=== PATIENT | male | born 1950 | race Caucasian/White ===

== ENCOUNTER 2016-09-22 15:47 | Emergency (ER) | payer BC ==
[2016-09-22 15:57] VITALS: BP 151/98
[2016-09-22] MEDS ORDERED: Sodium Chloride 0.9% 10 ML Syringe FLUSH PRN (16:10)
--- NOTE | 2016-09-22 16:16 | EDM.PDOC ---
ED HISTORY OF PRESENT ILLNESS - General Chief Complaint: Chest Pain Stated Complaint: CHEST PAIN, COUGH WHILE LAYING DOWN Time Seen by Provider: 09/22/16 15:57 Source of Information: Reports: Patient History Limitations: Reports: No limitations - History of Present Illness INITIAL COMMENTS - FREE TEXT/NARRATIVE: Patient is a 66-year-old male who has been experiencing intermittent burning sensation to the substernal aspect of his chest rated a 9/10 with exertion in cold temperatures. States the discomfort comes on quickly and is only relieved with resting in an warm environment. States this has been going on for the past 10 days with returning to [place] to work. Patient resides in [place]. States last episode was this morning when the pain came on abruptly and severe while walking outside. Patient states he got mildly short of breath and dizzy/lightheaded and almost passed out. He was evaluated in at the [facility] and had blood work, CXR, and EKG obtained. 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 Blood work was essentially normal. Blood glucose was 354. He refused to be transported via ambulance to the E.D. for evaluation. Patient received 324mg ASA at the clinic. CXR obtained revealed no active disease. Patient arrived at the E.D. pain free. Past medical history acid reflux and takes a acid spare hand carding medication of unknown name. Surgical history: Left biceps repair. Allergies: Penicillin Family history: Dad heart disease, brother heart disease with bypass x5. Denies smoking, alcohol, or recreational drug use. Timing/Duration: Reports: Resolved prior to arrival Location, General: Reports: chest Quality: Reports: Burning Improves with: Reports: Rest Worsens with: Reports: Other (Exertion in cold temperatures) Associated Symptoms (General): Reports: chest pain. 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 [Unable to Verify Home Med List] 09/22/16 [History] Past Medical History - Past Health History Medical/Surgical History: Denies Medical/Surgical History Social & Family History - Tobacco Use Smoking Status *Q: Never Smoker - Caffeine Use Caffeine Use: Reports: Coffee - Recreational Drug Use Recreational Drug Use: No ED ROS GENERAL - Review of Systems Review Of Systems: See Below Constitutional: Denies: fever, chills, diaphoresis Respiratory: Denies: Shortness of Breath, Cough, Sputum Cardiovascular: Reports: Chest pain, Dyspnea on exertion, Lightheadedness. Denies: Edema, Orthopnea, Palpitations, PND, Syncope GI/Abdominal: Denies: Abdominal pain, Constipation, Diarrhea, Nausea, Vomiting Musculoskeletal: Denies: neck pain, shoulder pain, arm pain, back pain Neurological: Reports: Dizziness ED EXAM, GENERAL - Physical Exam Exam: See Below Exam Limited By: No limitations General Appearance: alert, WD/WN, no apparent distress Ears: hearing grossly normal Throat/Mouth: Normal voice, No airway compromise Neck: normal inspection, supple Respiratory/Chest: no respiratory distress, lungs clear, normal breath sounds, no accessory muscle use, chest non-tender Cardiovascular: normal peripheral pulses, regular rate, rhythm, no JVD, no murmur Peripheral Pulses: 2+: radial (L), radial (R) GI/Abdominal: normal bowel sounds, soft, non tender, no organomegaly, no distention Back Exam: normal inspection Extremities: normal inspection, normal range of motion, non-tender, no pedal edema Neurological: alert, oriented, CN II-XII intact, normal cognition, no motor/ sensory deficits Psychiatric: normal affect, normal mood Skin Exam: Warm, Dry, Intact, Normal color Course - Vital Signs Last Recorded V/S: Last Vital Signs Temp 97.8 F 09/22/16 15:55 Pulse 105 H 09/22/16 15:55 Resp 18 09/22/16 15:55 BP 151/98 H 09/22/16 15:55 Pulse Ox 96 09/22/16 15:55 - Orders/Labs/Meds Orders: Active Orders 24 hr Category Date Time Status EKG 12 Lead [EKG Documentation Completion] [RC] STAT Care 09/22/16 18:06 Active EKG Documentation Completion [RC] STAT Care 09/22/16 16:10 Active Peripheral IV Care [RC] . DIRECTED Care 09/22/16 16:10 Active Heparin Sodium/D5W [Heparin 25,000 Units in D5W 500 ML] Med 09/22/16 17:00 Active 25,000 units in 500 ml IV TITRATE Sodium Chloride 0.9% [Saline Flush] Med 09/22/16 16:10 Active 10 ml FLUSH ASDIRECTED PRN Peripheral IV Insertion Adult [OM.PC] Stat Oth 09/22/16 16:10 Ordered Medication Orders Heparin Sodium/Dextrose (Heparin 25,000 Units In D5w 500 Ml) 25,000 units in 500 mls @ 22.861 mls/hr IV TITRATE PATRICIA; 12 UNITS/KG/HR PRN Reason: Protocol Sodium Chloride (Saline Flush) 10 ml FLUSH ASDIRECTED PRN PRN Reason: Keep Vein Open Last Admin: 09/22/16 16:12 Dose: 10 ml Labs: Laboratory Tests 09/22/16 09/22/16 Range/Units 16:10 16:10 APTT 25 (22-36) SECONDS Troponin I 1.156 H* (0.00-0.056) ng/mL Meds: Medications Generic Name Dose Route Start Last Admin Trade Name Freq PRN Reason Stop Dose Admin Heparin Sodium/Dextrose 25,000 units in 500 mls @ 22.861 mls/hr 09/22/16 17: 00 Heparin 25,000 Units In D5w 500 Ml IV TITRATE PATRICIA Protocol 12 UNITS/KG/HR Sodium Chloride 10 ml 09/22/16 16:10 09/22/16 16:12 Saline Flush FLUSH 10 ml ASDIRECTED PRN Administration Keep Vein Open Discontinued Medications Generic Name Dose Route Start Last Admin Trade Name Freq PRN Reason Stop Dose Admin Metoprolol Tartrate 25 mg 09/22/16 17:14 Lopressor PO 09/22/16 17:15 ONETIME ONE - Re-Assessments/Exams Free Text/Narrative Re-Assessment/Exam: Reviewed [facility] Notes. Lab results. Sodium 135, potassium 4.4, CO2 27, glucose 354, creatinine 1.0, BUN 12, calcium 9.3, white blood cell count 9.0, hemoglobin 16.0, platelets 194 Troponin and EKG were ordered. EKG revealed sinus tachycardia at a rate of 101, probable left atrial enlargement, inferior infarct old, anterior infarct old, CA interval is 146, QTC is 455, nonspecific ST changes, no stemi. 1636 Troponin 1.156. Heparin bolus and gtt ordered. 1649 Discussed patient with VALERIA Shah color control operator hospitalists at [facility]. He has accepted the patient. 1651 Ambulance was notified for transport. All appropriate transfer paperwork completed. 1715 Reassessment, patient pain free. Vital signs stable. Ordered metoprolol tartrate 25mg PO. 1725 Ambulance has arrived for transport. Departure - Departure Time of Disposition: 17:26 Disposition: DC/Tfer to Acute Hospital 02 Reason for Transfer *Q: Other Condition: fair Clinical Impression: NSTEMI (non-ST elevated myocardial infarction) Referrals: PCP,None [Primary Care Provider] - - My Orders Last 24 Hours: My Active Orders 09/22/16 16:10 EKG Documentation Completion [RC] STAT Peripheral IV Care [RC] . DIRECTED Sodium Chloride 0.9% [Saline Flush] 10 ml FLUSH ASDIRECTED PRN Peripheral IV Insertion Adult [OM.PC] Stat 09/22/16 17:00 Heparin Sodium/D5W [Heparin 25,000 Units in D5W 500 ML] 25,000 units in 500 ml IV TITRATE - Assessment/Plan Last 24 Hours: My Active Orders 09/22/16 16:10 EKG Documentation Completion [RC] STAT Peripheral IV Care [RC] . DIRECTED Sodium Chloride 0.9% [Saline Flush] 10 ml FLUSH ASDIRECTED PRN Peripheral IV Insertion Adult [OM.PC] Stat 09/22/16 17:00 Heparin Sodium/D5W [Heparin 25,000 Units in D5W 500 ML] 25,000 units in 500 ml IV TITRATE
[2016-09-22] MEDS ORDERED: Heparin Sodium/D5W 25,000 UNITS/500 ML BAG IV SCH (17:00)
[2016-09-22] MEDS ORDERED: Metoprolol Tartrate 25 MG Tab PO ONE (17:14)
== END 2016-09-22 17:45 ==
LOC: JD.ED 15:47
DX: I21.4 Non-ST elevation (NSTEMI) myocardial infarction (principal); Z88.0 Allergy status to penicillin
CPT/HCPCS: 36415; 84484; 85730; 93005; 96365; 99285; J7050; 99284